=== PATIENT | female | born 1935 | race African-American/Black ===

== ENCOUNTER 2019-06-04 10:34 | Emergency (ER) | payer OTHER ==
[~2019-06-04] VITALS: Ht 165.1 cm; Wt 43.0 kg
[2019-06-04] MEDS ORDERED: SODIUM CHLORIDE 0.9% 1,000 ML IV ONE (11:11)
[2019-06-04 11:51] LABS: CHLORIDE 107 mEq/L (98-107)
[2019-06-04 11:58] LABS: BASOPHILS % 0.9 % (0.0-2.0); EOSINOPHILS % 3.7 % (0.0-5.0); HEMATOCRIT. 44.5 % (36.0-48.0); HEMOGLOBIN. 15.2 g/dL (12.0-16.0); LYMPHOCYTES % 29.3 % (20.0-50.0); MEAN CORPUSCULAR HEMOGLOBIN 32.9 pg (28.0-32.0); MEAN CORPUSCULAR VOLUME 96.3 fL (81.0-99.0); MEAN PLATELET VOLUME 6.9 fl (7.4-10.4); MONOCYTES % 5.7 % (2.0-8.0); NEUTROPHILS % 60.4 % (40.0-76.0); PLATELET 290 x1000/uL (130-400); RED BLOOD CELL COUNT 4.63 mill/uL (4.2-5.4); RED CELL DISTRIBUTION WIDTH 13.5 % (11.6-14.6)
[2019-06-04 14:45] VITALS: BP 165/85
== END 2019-06-04 15:00 | disposition short-term general hospital (02) ==
LOC: ER 10:34 → CANBEDREQ 16:08
DX: R62.7 Adult failure to thrive (principal); R13.10 Dysphagia, unspecified; F03.90 Unspecified dementia, unspecified severity, without behavioral disturbance, psychotic disturbance, mood disturbance, and anxiety; R56.9 Unspecified convulsions
CPT/HCPCS: 36415; 71045; 80053; 84484; 85025; 93005; 99285; J7030

== ENCOUNTER 2021-12-09 11:43 | Inpatient (IN) | payer OTHER ==
[~2021-12-09] VITALS: Ht 162.6 cm; Wt 47.6 kg
[2021-12-09] MEDS ORDERED: PIPERACILLIN/TAZ 3.375G PREMIX 50 ML IV ONE (12:00)
[2021-12-09] MEDS ORDERED: VANCOMYCIN 1G PREMIX 200 ML IV ONE (12:00)
[2021-12-09] MEDS ORDERED: ALBUTEROL (0.083%) 2.5MG/3ML NEB HHN ONE (12:00)
[2021-12-09] MEDS ORDERED: DIPHENHYDRAMINE 50MG/ML VIAL IV NR (12:15)
[2021-12-09 12:26] LABS: BG BASE EXCESS -6.2 mmol/L (-2.0-2.0); BG CARBOXYHEMOGLOBIN 0.7 % (0.5-1.5); BG DEOXYHEMOGLOBIN 0.7 % (0.0-5.0); BG FRACTION INSPIRED OXYGEN 100; BG HCO3 ACT 23.4 mmol/L (22.0-26.0); BG METHEMOGLOBIN 0.4 % (0.0-1.5); BG OXYGEN SATURATION 99.3 % (92.0-98.5); BG OXYHEMOGLOBIN 98.2 % (94.0-97.0); BG PCO2 63.7 mmHg (35.0-45.0); BG PH 7.183 (7.350-7.450); BG PO2 316.8 mmHg (75.0-100.0); BG SAMPLE SITE RIGHT RADIAL; BG TOTAL HEMOGLOBIN 15.6 g/dL (12.0-18.0); BG VENT MODE MASK - NRB
[2021-12-09] MEDS ORDERED: SODIUM CHLORIDE 0.9% 250 ML IV ONE (12:30)
[2021-12-09 12:35] LABS: CHLORIDE 109 mEq/L (98-107)
[2021-12-09 12:37] LABS: BASOPHILS % 0.4 % (0.0-2.0); EOSINOPHILS % 2.8 % (0.0-5.0); HEMATOCRIT. 44.9 % (36.0-48.0); LYMPHOCYTES % 23.2 % (20.0-50.0); MEAN CORPUSCULAR VOLUME 98.9 fL (81.0-99.0); MEAN PLATELET VOLUME 10.3 fl (7.4-10.4); MONOCYTES % 3.8 % (2.0-8.0); NEUTROPHILS % 69.8 % (40.0-76.0); PLATELET 181 x1000/uL (130-400); RED BLOOD CELL COUNT 4.54 mill/uL (4.2-5.4); RED CELL DISTRIBUTION WIDTH 13.7 % (11.6-14.6)
[2021-12-09] MEDS ORDERED: SODIUM BICARBONATE 8.4% 1 MEQ/ML 50ML SYR IV NR (13:00)
[2021-12-09] MEDS ORDERED: IPRATROPIUM/ALBUTEROL 0.5-3(2.5)MG/3ML NEB HHN PRN (16:15)
[2021-12-09] MEDS ORDERED: GUAIFENESIN 200MG/10ML SUGAR FREE UDC PO PRN (16:45)
[2021-12-09] MEDS ORDERED: PIPERACILLIN/TAZ 3.375G PREMIX 50 ML IV SCH (16:45)
[2021-12-09] MEDS ORDERED: CLONIDINE 0.1MG TABLET PO PRN (16:45)
[2021-12-09] MEDS ORDERED: ACETAMINOPHEN 650MG/20.3ML UDC GT PRN ×2 (16:45)
[2021-12-09] MEDS ORDERED: ONDANSETRON HCL 4MG/2ML INJ IV PRN (16:45)
[2021-12-09] MEDS ORDERED: IPRATROPIUM/ALBUTEROL 0.5-3(2.5)MG/3ML NEB HHN SCH (16:45)
[2021-12-09] MEDS ORDERED: IPRATROPIUM/ALBUTEROL 0.5-3(2.5)MG/3ML NEB NEB PRN (16:45)
[2021-12-09] MEDS ORDERED: DEXTROSE 50% WATER 50ML SYRINGE IV PRN (16:45)
[2021-12-09] MEDS ORDERED: NITROGLYCERIN 0.4MG TABLET SL SL PRN (16:45)
[2021-12-09] MEDS ORDERED: NA PHOS,M-B/NA PHOS,DI-BA ENEMA 118ML PR PRN (16:45)
[2021-12-09] MEDS ORDERED: DOCUSATE SODIUM 100MG CAPSULE PO PRN (16:45)
[2021-12-09] MEDS ORDERED: KETOROLAC 15MG/ML VIAL IV PRN (16:45)
[2021-12-09 16:51] LABS: BG BASE EXCESS -0.3 mmol/L (-2.0-2.0); BG CARBOXYHEMOGLOBIN 0.4 % (0.5-1.5); BG DEOXYHEMOGLOBIN 0.6 % (0.0-5.0); BG FRACTION INSPIRED OXYGEN 99.8; BG METHEMOGLOBIN 0.3 % (0.0-1.5); BG OXYGEN SATURATION 99.4 % (92.0-98.5); BG OXYHEMOGLOBIN 98.7 % (94.0-97.0); BG PCO2 43.3 mmHg (35.0-45.0); BG PO2 265.7 mmHg (75.0-100.0); BG SAMPLE SITE LEFT RADIAL; BG TOTAL HEMOGLOBIN 15.3 g/dL (12.0-18.0); BG VENT MODE MASK - NRB
[2021-12-09 17:00] VITALS: BP_SYST 128; BP_DIAS 72; BP_DIAS 75
[2021-12-09] MEDS: BLOOD SUGAR DIAGNOSTIC STRIP TEST SCH ×2 (17:00→20:33)
[2021-12-09] MEDS: INSULIN LISPRO 100 UNITS/ML SUBCUT SCH ×2 (18:18→20:33)
[2021-12-09 18:26] LABS: T4 FREE 1.28 ng/dL (0.76-1.46)
[2021-12-09] MEDS: METHYLPREDNISOLONE SOD SUCC 40 MG/ML VIAL IV SCH ×2 (18:29→23:53)
[2021-12-09] MEDS: ENOXAPARIN 40MG/0.4ML SYR SUBCUT SCH (18:29)
[2021-12-09 18:49] VITALS: BP 127/85
[2021-12-09] MEDS ORDERED: INFLUENZA VACCINE 05/PF 0.5 ML SYRINGE IM ONE (19:45)
[2021-12-09] MEDS ORDERED: PNEUMOCOCCAL 23-VAL P-SAC VAC 0.5 ML IM ONE (19:45)
[2021-12-09 20:00] VITALS: BP 126/60
[2021-12-09 20:29] LABS: FOLIC ACID (FOLATE) SERUM 14.8 ng/mL (>5.38)
[2021-12-09] MEDS: ASCORBIC ACID 500 MG TABLET PO SCH (20:34)
[2021-12-09] MEDS ORDERED: ZOLPIDEM TARTRATE 5MG TABLET PO PRN (21:00)
[2021-12-09] MEDS ORDERED: PIPERACILLIN/TAZOBACTAM 3.375 G in DEXTROSE 5% WATER 50 ML IV SCH (22:00)
[2021-12-09] MEDS: PIPERACILLIN/TAZOBACTAM 3.375 G in DEXTROSE 5% WATER 50 ML IV SCH (23:41)
[2021-12-10] VITALS: BP 125/98
[2021-12-10 00:56] LABS: CREATINE KINASE MB FRACTION 5.7 ng/mL (0.5-3.6)
[2021-12-10] MEDS: IPRATROPIUM/ALBUTEROL 0.5-3(2.5)MG/3ML NEB HHN SCH ×6 (04:00→23:58)
[2021-12-10] MEDS: PIPERACILLIN/TAZOBACTAM 3.375 G in DEXTROSE 5% WATER 50 ML IV SCH ×3 (05:44→21:23)
[2021-12-10 06:24] LABS: CHLORIDE 108 mEq/L (98-107)
[2021-12-10 06:41] LABS: CREATINE KINASE MB FRACTION 5.5 ng/mL (0.5-3.6); PHOSPHORUS 3.2 mg/dL (2.5-4.9)
[2021-12-10 06:44] LABS: CREATINE KINASE 127 IU/L (26-192)
[2021-12-10 07:03] LABS: HEMOGLOBIN. 15.5 g/dL (12.0-16.0); MEAN CORPUSCULAR HEMOGLOBIN 33.8 pg (28.0-32.0); MEAN CORPUSCULAR VOLUME 97.9 fL (81.0-99.0); MEAN PLATELET VOLUME 10.7 fl (7.4-10.4); PLATELET 155 x1000/uL (130-400); RED CELL DISTRIBUTION WIDTH 13.4 % (11.6-14.6)
[2021-12-10 08:00] VITALS: BP 141/68
[2021-12-10] MEDS: INSULIN LISPRO 100 UNITS/ML SUBCUT SCH ×4 (08:00→23:25)
[2021-12-10] MEDS: BLOOD SUGAR DIAGNOSTIC STRIP TEST SCH ×4 (08:24→23:25)
[2021-12-10] MEDS: PANTOPRAZOLE SODIUM 40 MG/VIAL IV SCH (09:30)
[2021-12-10] MEDS: METHYLPREDNISOLONE SOD SUCC 40 MG/ML VIAL IV SCH ×3 (09:30→23:30)
[2021-12-10] MEDS: ASCORBIC ACID 500 MG TABLET PO SCH ×2 (09:31→21:23)
[2021-12-10] MEDS: ZINC SULFATE 220 MG ( 50 ) CAPSULE PO SCH (09:31)
[2021-12-10] MEDS: CHOLECALCIFEROL (D3) 1000 UNIT TABLET PO SCH (09:31)
[2021-12-10] MEDS ORDERED: VANCOMYCIN 1GM PMX (XELLIA) 200 ML IV SCH ×2 (10:00→11:00)
[2021-12-10] MEDS: VANCOMYCIN 750MG PREMIX 150 ML IV SCH (11:38)
[2021-12-10 11:56] VITALS: BP 133/52
[2021-12-10 14:00] LABS: PLATELET ESTIMATE NORMAL
[2021-12-10] MEDS ORDERED: LEVOTHYROXINE SODIUM 25MCG TABLET GT NR (14:00)
[2021-12-10] MEDS: ENOXAPARIN 40MG/0.4ML SYR SUBCUT SCH (17:07)
[2021-12-10 20:00] VITALS: BP 115/66
[2021-12-10] MEDS: METOCLOPRAMIDE HCL 10MG/2ML VIAL IV SCH (23:30)
[2021-12-11 03:30] VITALS: BP 84/57
[2021-12-11] MEDS: IPRATROPIUM/ALBUTEROL 0.5-3(2.5)MG/3ML NEB HHN SCH ×5 (03:59→20:10)
[2021-12-11] MEDS: METOCLOPRAMIDE HCL 10MG/2ML VIAL IV SCH ×3 (05:26→18:09)
[2021-12-11] MEDS: BLOOD SUGAR DIAGNOSTIC STRIP TEST SCH ×3 (05:26→18:07)
[2021-12-11] MEDS: PIPERACILLIN/TAZOBACTAM 3.375 G in DEXTROSE 5% WATER 50 ML IV SCH ×2 (05:26→14:06)
[2021-12-11] MEDS: INSULIN LISPRO 100 UNITS/ML SUBCUT SCH ×3 (05:28→18:00)
[2021-12-11 05:45] LABS: HEMATOCRIT. 37.3 % (36.0-48.0); HEMOGLOBIN. 12.5 g/dL (12.0-16.0); MEAN CORPUSCULAR VOLUME 98.1 fL (81.0-99.0); MEAN PLATELET VOLUME 10.3 fl (7.4-10.4); PLATELET 127 x1000/uL (130-400); RED BLOOD CELL COUNT 3.81 mill/uL (4.2-5.4); RED CELL DISTRIBUTION WIDTH 13.3 % (11.6-14.6)
[2021-12-11] MEDS ORDERED: LEVOTHYROXINE SODIUM 25MCG TABLET GT SCH (07:30)
[2021-12-11 08:00] VITALS: BP 81/43
[2021-12-11] MEDS: PANTOPRAZOLE SODIUM 40 MG/VIAL IV SCH (09:13)
[2021-12-11] MEDS: CHOLECALCIFEROL (D3) 1000 UNIT TABLET PO SCH (09:13)
[2021-12-11] MEDS: METHYLPREDNISOLONE SOD SUCC 40 MG/ML VIAL IV SCH ×2 (09:13→18:09)
[2021-12-11] MEDS: ZINC SULFATE 220 MG ( 50 ) CAPSULE PO SCH (09:14)
[2021-12-11] MEDS: ASCORBIC ACID 500 MG TABLET PO SCH ×2 (09:15→20:48)
[2021-12-11 12:00] VITALS: BP 89/67
[2021-12-11 16:00] VITALS: BP 105/64
[2021-12-11 20:31] VITALS: BP 102/51
[2021-12-11] MEDS: VANCOMYCIN 750MG PREMIX 150 ML IV SCH (20:47)
[2021-12-11] MEDS ORDERED: ENOXAPARIN 30MG/0.3ML SYR SUBCUT SCH ×2 (21:00)
[2021-12-12 00:27] LABS: PLATELET ESTIMATE SLIGHTLY DECREASED
[2021-12-12] MEDS ORDERED: LEVOTHYROXINE SODIUM 50MCG TABLET GT SCH (07:30)
== END 2021-12-11 23:02 | disposition short-term general hospital (02) | DRG 871 ==
LOC: ER 11:43 → EDBEDREQ 13:38 → EDBEDREQTM 13:38 → 5EST 14:07 → EDBEDREQTM 14:10 → EDBEDREQ 14:10 → ENRESERV 15:37
PROVIDERS: ADMIT Internal Medicine; ATTEND Internal Medicine
PROC: 5A09357 Assistance with Respiratory Ventilation, Less than 24 Consecutive Hours, Continuous Positive Airway Pressure (ICD-10-PCS; principal; 2021-12-09)
DX: A41.9 Sepsis, unspecified organism (principal); J96.01 Acute respiratory failure with hypoxia; J96.02 Acute respiratory failure with hypercapnia; G92.8 Other toxic encephalopathy; J18.9 Pneumonia, unspecified organism; J44.1 Chronic obstructive pulmonary disease with (acute) exacerbation; I44.2 Atrioventricular block, complete; J44.0 Chronic obstructive pulmonary disease with (acute) lower respiratory infection; Z66 Do not resuscitate; F03.90 Unspecified dementia, unspecified severity, without behavioral disturbance, psychotic disturbance, mood disturbance, and anxiety; G40.909 Epilepsy, unspecified, not intractable, without status epilepticus; K59.00 Constipation, unspecified; R13.10 Dysphagia, unspecified; R65.20 Severe sepsis without septic shock; R79.89 Other specified abnormal findings of blood chemistry; T50.995A Adverse effect of other drugs, medicaments and biological substances, initial encounter; Z20.822 Contact with and (suspected) exposure to COVID-19; E03.9 Hypothyroidism, unspecified; E88.09 Other disorders of plasma-protein metabolism, not elsewhere classified; I25.10 Atherosclerotic heart disease of native coronary artery without angina pectoris; I11.9 Hypertensive heart disease without heart failure; I25.2 Old myocardial infarction; Z51.5 Encounter for palliative care; Z93.1 Gastrostomy status; Z74.01 Bed confinement status; Y92.89 Other specified places as the place of occurrence of the external cause
CPT/HCPCS: 36415; 36600; 71045; 80048; 80053; 80061; 82375; 82550; 82553; 82607; 82746; 82805; 82962; 83036; 83540; 83550; 83605; 83735; 83880; 84100; 84145; 84439; 84443; 84484; 85025; 87426; 90686; 90732; 93005; 93306; 93970; 94640; 94660; 99291; C9113; J1200; J1650; J1815; J2405; J2543; J2765; J2920; J3370; J3490; J7060